=== PATIENT | male | born 1955 | race Caucasian/White ===

== ENCOUNTER → 2020-01-28 | Outpatient (CLI) | payer OTHER ==
--- NOTE | 2020-01-28 09:49 | REP ---
Clinical: Lung screening. History smoking. Comparison: None Technique: Axial low-dose noncontrast images from the thoracic inlet to the upper abdomen using lung screening technique. Findings: There is a 14 mm part solid density along the periphery of the right upper lobe (images 35 - 37) along with calcified granulomata and partially calcified mediastinal/hilar lymph nodes and scattered small areas of subpleural scarring. No further consolidation, significant nodule or mass lesion. No pleural effusion. No pneumothorax. Tracheobronchial tree is patent. Impression: 1. A 14 mm part solid density along the periphery of the right upper lobe. Management recommendations include 3-month low-dose CT follow-up examination. 2. Evidence for prior granulomatous disease. Electronically Signed by Santosh Mckinney MD 01/28/2020 09:40 A
== END ==
LOC: M RAD 09:06
PROVIDERS: ATTEND Physician Assistant
DX: Z12.2 Encounter for screening for malignant neoplasm of respiratory organs (principal); F17.218 Nicotine dependence, cigarettes, with other nicotine-induced disorders